=== PATIENT | male | born 1965 | race Caucasian/White ===

== ENCOUNTER 2024-03-20 23:44 | Outpatient (CLI) | payer OTHER, SELFPAY | END 2024-03-20 23:45 | disposition home or self-care (01) | LOC: AMB 03-29 03:48 | PROVIDERS: Visit Provider Family Medicine | DX: F10.129 Alcohol abuse with intoxication, unspecified (principal) | CPT/HCPCS: A0425; A0429 ==

== ENCOUNTER 2024-03-21 00:05 | Emergency (ER) | payer OTHER, SELFPAY ==
--- NOTE | 2024-03-21 00:15 | ED_ITS ---
HPI - General Adult General Chief complaint: Alcohol/Intoxication Stated complaint: ETOH Time Seen by Provider: 03/21/24 00:15 Source: patient, EMS and police Mode of arrival: EMS Limitations: other (Intoxication) History of Present Illness HPI narrative: 58-year-old male is brought in by police department and EMS because of public intoxication. [place] was [place]. There were no signs of injury. Patient is obviously intoxicated. He can answer some questions and can ambulate. He denies any pain to us. He walks in self to the restroom. He admits to drinking alcohol and attempts to make some jokes. Denies any recent illness or chronic medical problems. Denies drug use tonight. No recent injury. No additional information from EMS or PD. He denies any significant past medical history. Denies long-term medications or allergies. ROS is notable for the intoxication, otherwise denies times 12 systems. Related Data Home Medications ?Medication ?Instructions ?Recorded ?Confirmed No Known Home Medications 03/21/24 03/21/24 Allergies Allergy/AdvReac Type Severity Reaction Status Date / Time No Known Drug Allergies Allergy Verified 03/21/24 00:22 [facility] Social History Non-prescribed substance use details: pt denies answering etoh intake Exam Const: Vital Signs, click to edit/add: Vital Signs - 24 hr 03/21/24 00:17 Temperature 97.9 F Pulse Rate [Pulse Oximeter] 92 Respiratory Rate 16 Blood Pressure [Ri ght Upper Arm] 134/90 H Pulse Oximetry 96 Oxygen Delivery Me thod Room Air Documenting provider has reviewed patient's vital signs: yes Common normals: alert Other: Intoxicated. He will answer questions and make jokes but slurs his speech slightly and has a stumbling gait. He will follow commands and answer questions. HENMT: Common normals: normocephalic, head/scalp atraumatic and TM's normal bilaterally Head and scalp: normal to inspection, normocephalic and atraumatic Face and sinus: normal facial exam Tympanic membrane: TM's normal bilaterally Mouth: oral and palatal mucosa normal Throat: posterior oropharynx normal Eye: Common normals: PERRL, EOMs intact bilaterally and conjunctivae normal Conjunctiva: conjunctiva(e) normal Pupil: PERRL Neck & C-Spine: Common normals: full ROM and no lymphadenopathy Cervical spine: cervical ROM normal; no cervical spine tenderness Chest: Common normals: inspection of chest normal Resp: Common normals: normal respiratory effort, no use of accessory muscles and clear to auscultation bilaterally Effort & inspection: able to speak in complete sentences Auscultation: clear to auscultation bilaterally Cardio: Common normals: regular rate, regular rhythm, S1 normal heart sound, S2 normal heart sound and no murmurs Rate: regular rate Rhythm: regular rhythm Heart sounds: S1 normal and S2 normal GI: Common normals: Normal to inspection, nondistended, normoactive bowel sounds present, soft to palpation, non-tender, no hepatosplenomegaly and no masses Palpation: soft and no hepatosplenomegaly Back & Pelvis: Common normals: thoracic and lumbar spine normal to inspection Extremity: Common normals: normal to inspection, full ROM, normal capillary refill and no pedal edema Neuro: Sensorium/orientation: alert Gait (neuro): staggering Motor exam: strength 5/5 throughout and no tremor noted Psych: Other: Intoxicated but no signs of visible injury. Has urinated himself. Will follow questions. Skin: Common normals: no rashes or lesions noted General skin exam: no rashes or lesions noted Course Course ED Course: 58-year-old intoxicated male brought into ED by PD because of intoxication. There are no signs of medical compromise or traumatic injury. Patient is not showing any focal neurological signs that would indicate secondary condition. Family has declined to come get him overnight. We will try to convince him to sleep and rest until the morning hours when he may potentially be safely discharged. We will continue to seek other relatives and family that may be able to come get him. He can be medically discharged to a responsible adult at any time. Reevaluation(s) Time of Reevaluation #1: 00:57 Reevaluation #1: Update: After initial hesitation, friend has agreed to come pick patient up. Patient is not interested in detox at this time. Vital Signs Vital signs: Initial Vital Signs Temperature 97.9 F 03/21/24 00:17 Temperature Source Temporal Artery Scan 03/21/24 00:17 Pulse Rate 92 03/21/24 00:17 Pulse Rhythm Regular 03/21/24 00:17 Pulse Strength 3+ Normal 03/21/24 00:17 Respiratory Rate 16 03/21/24 00:17 Blood Pressure 134/90 H 03/21/24 00:17 Blood Pressure Mean 104 03/21/24 00:17 Blood Pressure Position Standing 03/21/24 00:17 Pulse Oximetry 96 03/21/24 00:17 Oxygen Delivery Method Room Air 03/21/24 00:17 Vital Signs Temperature 97.9 F 03/21/24 00:17 Pulse Rate 92 03/21/24 00:17 Respiratory Rate 16 03/21/24 00:17 Blood Pressure 134/90 H 03/21/24 00:17 Pulse Oximetry 96 03/21/24 00:17 Oxygen Delivery Method Room Air 03/21/24 00:17 Temperature 97.9 F 03/21/24 00:17 Pulse Rate 92 03/21/24 00:17 Respiratory Rate 16 03/21/24 00:17 Blood Pressure 134/90 H 03/21/24 00:17 Pulse Oximetry 96 03/21/24 00:17 Oxygen Delivery Method Room Air 03/21/24 00:17 Discharge Plan Discharge Clinical Impression: Alcoholic intoxication Patient Disposition: Home w/ Parent or Adult Condition: Stable Instructions: Abuse of Alcohol (DC) Additional Instructions: As we discussed, you need to cut down on your alcohol uses significantly. Your drinking at dangerous levels and this is harmful to your health. If you feel as though you would like assistance with quitting alcohol, I would recommend detox. We cannot take you there without your consent and willingness to stop drinking. At this time, you had not expressed that you are wanting alcohol addiction treatment. If you do wish to pursue this, additional resources are available through your local [facility] social work. Your likely to encounter legal problems if you continue this pattern of behavior. No work or driving until after noon. Activity Level: Activity as Tolerated Discharge Diet: Regular Prescriptions: No Action No Known Home Medications Stand Alone Forms: [employer] Info Instructions
[2024-03-21 00:17] VITALS: BP 134/90; PULSE 92; RESP 16; TEMP 36.6; O2SAT 96
[2024-03-21 01:11] VITALS: PULSE 86; RESP 16; O2SAT 97
[2024-03-21 01:43] VITALS: BP 134/90; PULSE 86; RESP 16; TEMP 36.6
== END 2024-03-21 01:44 | disposition home or self-care (01) ==
PROVIDERS: Emergency Provider Family Medicine
DX: F10.129 Alcohol abuse with intoxication, unspecified (principal)
CPT/HCPCS: 99282; 99283